=== PATIENT | female | born 1995 | race Caucasian/White ===

== ENCOUNTER 2017-05-01 11:29 | Observation (INO) | payer OTHER ==
[2017-05-01] MEDS ORDERED: methylPREDNISolone SOD SUCC 125 MG/2 ML VIAL IVP ONE (12:14)
[2017-05-01 12:21] LABS: % IMMATURE GRANULYOCYTES 0.4 % (0.0-1.1); ABSOLUTE IMMATURE GRANULOCYTES 0.11 10^3/uL (0.00-0.10); ADD DIFF? NO; ADD MORPH? NO; ADD SCAN? YES; FRAGMENT RBC FLAG 0 (0-99); HEMATOCRIT 44.4 % (38.0-47.0); HEMOGLOBIN 15.5 g/dL (12.6-16.3); LEFT SHIFT FLG 0 (0-99); LIPEMIA HEMOLYSIS FLAG 90 (0-99); MEAN CELL HEMOGLOBIN 31.4 pg (27.9-34.1); MEAN CELL HEMOGLOBIN CONCENTR. 34.9 g/dL (32.4-36.7); MEAN CELL VOLUME 89.9 fL (81.5-99.8); MEAN PLATELET VOLUME 11.3 fL (8.7-11.7); PLATELET CLUMPS FLAG 10 (0-99); PLATELET COUNT 179 10^3/uL (150-400); RED BLOOD CELL COUNT 4.94 10^6/uL (4.18-5.33)
[2017-05-01 12:26] LABS: ATYPICAL LYMPHOCYTE FLAG 300 (0-99)
[2017-05-01 12:28] LABS: ANION GAP 14 mEq/L (8-16); CALCIUM 9.3 mg/dL (8.5-10.4); CARBON DIOXIDE 22 mEq/l (22-31); CHLORIDE 109 mEq/L (97-110); CREATININE 0.9 mg/dL (0.6-1.0); GLOMERULAR FILTRATION RATE > 60; GLUCOSE 97 mg/dL (70-100); POTASSIUM 3.8 mEq/L (3.5-5.2); SODIUM 145 mEq/L (134-144)
--- NOTE | 2017-05-01 12:28 | EDPHY ---
H & P Time Seen by Provider: 05/01/17 12:22 HPI/ROS: CHIEF COMPLAINT: Sore throat HISTORY OF PRESENT ILLNESS: The patient is a 21-year-old female who presents emergency department with 1 week of cold-like symptoms. 3 days ago she developed sore throat. She went to urgent care on Friday. She had a positive mono spot test. She was started on prednisone. She states that her throat swelling has increased. She has significant bilateral throat pain. Since waking this morning she has had unfold voice. She denies fevers or chills. No nausea or vomiting. No abdominal pain. REVIEW OF SYSTEMS: My complete review of systems is negative except as mentioned in the HPI. Past Medical/Surgical History: Includes asthma, sinusitis, migraine Past surgical history: Negative Social history: The patient does not smoke Smoking Status: Never smoked Physical Exam: Vitals noted GENERAL: Mild acute distress, alert. HEENT: Eyes normal to inspection, no signs of dehydration. Patient has significant bilateral anterior lymphadenopathy with tenderness palpation. Patient's pharynx has markedly enlarged tonsils. These are touching the uvula bilateral. NECK: No thyromegaly, no lymphadenopathy, supple. RESPIRATORY: Clear to auscultation bilaterally, no rales, rhonchi or wheezing. CVS: Regular rate and rhythm, no rubs, murmurs, or gallops. ABDOMEN: Soft, nontender, nondistended, no organomegaly. BACK: Normal to inspection, no CVA tenderness. SKIN: Normal color, no rash, warm, dry. No pallor. EXTREMITIES: No pedal edema, no calf tenderness, no Homans sign or cords, no joint swelling. NEURO/PSYCH: Alert and oriented x3, normal mood and affect, normal motor sensory exam. Constitutional: Initial Vital Signs Temperature (C) 36.8 C 05/01/17 11:41 Heart Rate 112 H 05/01/17 11:41 Respiratory Rate 20 05/01/17 11:41 Blood Pressure 120/76 05/01/17 11:41 O2 Sat (%) 95 05/01/17 11:41 O2 Delivery Mode Room Air Allergies/Adverse Reactions: No Known Allergies Allergy (Unverified 05/01/17 11:40) Home Medications: Medication Instructions Recorded Prednisone 05/01/17 Medical Decision Making - Diagnostics Imaging Results: Imaging Impressions Neck CT 05/01/17 12:14 Impression: 1. Prominent adenoid tonsils bilaterally with small hypodense component within the deep portion of the right adenoid tonsil that could represent a small phlegmon versus tiny abscess. 2. Prominent lymphadenopathy on each side of the neck with largest jugulodigastric node as detailed above on each side. This could represent reactive lymphadenopathy from upper respiratory process. Clinical follow-up suggested. Findings discussed with Vicki Vasquez M.D. at 13:59 hour, 05/01/2017. ED Course/Re-evaluation: In the emergency department I discussed possible etiologies with the patient. I answered all her questions. IV was placed. Patient was given normal saline 1 L IV for hydration. She was given Solu-Medrol 125 mg IV. Laboratory studies and soft tissue neck CT were ordered. CT soft tissue neck: Please refer the dictated report. Patient has large tonsils. There is the right hypodense focus is a phlegmon versus abscess. This is 8 x 9 [place] [address]. Chemistry panel unremarkable. I discussed the results with the patient. On recheck she continues to have swollen tonsils. No airway occlusion. Patient still with muffled voice. ENT was paged. Patient was given Unasyn 1.5 g IV. She will be admitted for observation. I discussed the case with Dr. Hill from the hospitalist service. 1455: Patient is stable. No increased swelling of the patient's pharynx. Her airway is intact. No stridor wheezing. Differential Diagnosis: My differential includes but is not limited to mononucleosis, pharyngitis, peritonsillar abscess, retropharyngeal abscess, airway occlusion - Data Points Laboratory Results: Laboratory Results 05/01/17 12:07 05/01/17 12:05/01/17 05/01/17 05/01/17 12: 12: 12:07 WBC 25.31 10^3/uL H 10^3/uL (3.80-9.50) RBC 4.94 10^6/uL 10^6/uL (4.18-5.33) Hgb 15.5 g/dL g/dL (12.6-16.3) Hct 44.4 % % (38.0-47.0) MCV 89.9 fL fL (81.5-99.8) MCH 31.4 pg pg (27.9-34.1) MCHC 34.9 g/dL g/dL (32.4-36.7) RDW 14.0 % % (11.5-15.2) Plt Count 179 10^3/uL 10^3/uL (150-400) MPV 11.3 fL fL (8.7-11.7) Neut % (Auto) 16.1 % L % (39.3-74.2) Lymph % (Auto) 76.4 % H % (15.0-45.0) [place] % (Auto) 5.4 % % (4.5-13.0) Eos % (Auto) 0.1 % L % (0.6-7.6) Baso % (Auto) 1.6 % % (0.3-1.7) Nucleat RBC Rel Count 0.0 % % (0.0-0.2) Absolute Neuts (auto) 4.09 10^3/uL 10^3/uL (1.70-6.50) Absolute Lymphs (auto) 19.33 10^3/uL H 10^3/uL (1.00-3.00) Absolute Monos (auto) 1.36 10^3/uL H 10^3/uL (0.30-0.80) Absolute Eos (auto) 0.02 10^3/uL L 10^3/uL (0.03-0.40) Absolute Basos (auto) 0.40 10^3/uL H 10^3/uL (0.02-0.10) Absolute Nucleated RBC 0.00 10^3/uL 10^3/uL (0-0.01) Immature Gran % 0.4 % % (0.0-1.1) Seg Neutrophils % 19 % % Lymphocytes % 79 % % Monocytes % 2 % % Immature Gran # 0.11 10^3/uL H 10^3/uL (0.00-0.10) Absolute Seg Neuts 4.81 10^/uL 10^/uL (1.70-6.50) Absolute Lymphocytes 19.99 10^3/uL H 10^3/uL (1.00-3.00) Absolute Monocytes 0.51 10^3/uL 10^3/uL (0.30-0.80) RBC/WBC/PLT Morphology NORMAL (NORMAL) Atypical Lymphocytes 2+ H Platelet Estimate ADEQUATE (ADEQ) Smear Review By Pending Sodium 145 mEq/L H mEq/L (134-144) Potassium 3.8 mEq/L mEq/L (3.5-5.2) Chloride 109 mEq/L mEq/L (97-110) Carbon Dioxide 22 mEq/l mEq/l (22-31) Anion Gap 14 mEq/L mEq/L (8-16) BUN 12 mg/dL mg/dL (7-23) Creatinine 0.9 mg/dL mg/dL (0.6-1.0) Estimated GFR > 60 Glucose 97 mg/dL mg/dL (70-100) Calcium 9.3 mg/dL mg/dL (8.5-10.4) Beta HCG, Qual NEGATIVE Medications Given: Discontinued Medications Methylprednisolone Sodium Succinate (Solu-Medrol) 125 mg IVP EDNOW ONE Stop: 05/01/17 12:15 Last Admin: 05/01/17 12:18 Dose: 125 mg Departure - Departure Disposition: [facility] Inpatient Acute Clinical Impression: Mononucleosis Pharyngitis Qualifiers: Pharyngitis/tonsillitis etiology: unspecified etiology Qualified Code(s): J02.9 - Acute pharyngitis, unspecified Condition: Fair
[2017-05-01] MEDS ORDERED: IOPAMIDOL (ISOVUE-300) 100 ML BTL ONE (12:59)
[2017-05-01 13:55] LABS: SCAN POSITIVE
[2017-05-01 14:00] LABS: PLATELET ESTIMATE ADEQUATE (ADEQ)
[2017-05-01] MEDS ORDERED: AMPICILLIN/SULBACTAM 1.5 GM in NS 50 ML IV ONE (14:14)
[2017-05-01 14:36] LABS: BILIRUBIN,TOTAL 0.7 mg/dL (0.1-1.4)
[2017-05-01] MEDS ORDERED: ONDANSETRON 4 MG/2 ML VIAL IVP PRN (16:52)
[2017-05-01] MEDS ORDERED: oxyCODONE IR 5 MG TAB PO PRN (16:52)
[2017-05-01] MEDS ORDERED: HYDROmorphone HCL/NS/PF 0.4 MG/2 ML SYR IVP PRN (16:52)
[2017-05-01] MEDS ORDERED: KETOROLAC 30 MG/1 ML SDV IVP PRN (16:52)
[2017-05-01] MEDS ORDERED: traMADol 50 MG TAB PO PRN (16:52)
[2017-05-01] MEDS ORDERED: ACETAMINOPHEN 325 MG TAB PO PRN (16:52)
[2017-05-01] MEDS ORDERED: PROMETHAZINE HCL 25 MG/ML INJ IVP PRN (16:52)
[2017-05-01] MEDS ORDERED: D5W LR 1,000 ML IV SCH (17:00)
--- NOTE | 2017-05-01 17:19 | GHP ---
[f rep st] HISTORY AND PHYSICAL DATE OF ADMISSION: 05/01/2017 CHIEF COMPLAINT: Sore throat. HISTORY: The patient is a 21-year-old female, who has been sick for about a week, initially presenti with fatigue. About 2 days ago, she developed a severe sore throat with enlargement of her cervic al nodes and swelling in her tonsils. She was seen at Urgent Care 2 days ago and Monospot was positi ve. Her strep was negative. She was started on prednisone. She was told that she could anticipate improvement on the steroids; however she has only gotten worse. She feels like her throat swelling i s increasing. She has severe pain with swallowing. She has been unable to take anything orally. Sh e can't even swallow the prednisone tablets. She is feeling short of breath due to the immense throa t swelling. PAST MEDICAL HISTORY: 1. Asthma. 2. Migraines. MEDICATIONS: Please see computer record for full detailed list. ALLERGIES: No known drug allergies. SOCIAL HISTORY: No smoking. No alcohol. She is a sophomore at . She lives in an apartment with her boyfriend. She is originally from [place], [place]. REVIEW OF SYSTEMS: Complete review of systems obtained. Review of systems negative regarding consti tutional, HEENT, GI, pulmonary, cardiovascular, , hematology, skin, musculoskeletal, endocrine, psy ch. Positives and negatives as in HPI. FAMILY HISTORY: Reviewed, noncontributory to presenting complaint. PHYSICAL EXAMINATION: GENERAL: Well-developed, well-nourished female, in no acute distress. VITAL SIGNS: Temperature 36.9, pulse 112, blood pressure 112/74, saturating 96% on room air. EYES: Normal conjunctivae. Pupils round, reactive to light. ENT: Normal ears, nose. Hearing intact. Normal t eeth. Oropharynx is dry. She has massive pharyngeal tonsillar enlargement although I do not see muc h exudate on them. She has very large bilateral cervical nodes. Trachea is midline. No thyromegaly . CHEST: Normal respiratory effort. LUNGS: Clear to auscultation bilaterally. CARDIOVASCULAR: R egular rhythm. No murmur. No extremity edema. ABDOMEN: Soft, nontender. No hepatosplenomegaly. SKIN: Warm, dry, intact. No rash. MUSCULOSKELETAL: No cyanosis or clubbing. Strength 5/5 upper a nd lower extremities. NEUROLOGIC: Cranial nerves intact. Normal sensation light touch. PSYCH: Al ert and oriented x3. Normal mood and affect. Normal judgment. Normal memory. LABORATORY DATA: White count 25.3, 76% lymphocytes, 2+ atypical lymphocytes, hematocrit 44.4, platel ets 179. Sodium 145, potassium 3.8, chloride 109, bicarb 22, BUN 12, creatinine 0.9, glucose 97. Be ta HCG is negative. IMAGING PROCEDURE: CT scan of the neck shows prominent adenoids with a right phlegmonous abscess. T his case was discussed with Dr. Vicki Vasquez, emergency room physician. Regarding ER course, he s tarted her on IV Unasyn, IV steroids and he consulted ENT. ASSESSMENT/PLAN: 1. Mononucleosis. Patient has massive tonsillar enlargement and cervical lymphadenopathy. CT scan of the neck does show her airway is intact. I have personally spoken with ENT and they do not think there is any indication for a procedure at this time and recommend medical therapy with steroids and antibiotics. We will place on IV Decadron. 2. Phlegmonous small abscess. We will continue IV Unasyn and can transition to oral antibiotic when she is able to take p.o. 3. Leukocytosis. This is lymphocyte-predominant and consistent with mononucleosis. I do not think she has sepsis. 4. Asthma. Continue her Singulair. CODE STATUS: Full. ADMISSION STATUS: We will admit to observation and re-evaluate tomorrow regarding stability to trans ition oral therapy. DEEP VENOUS THROMBOSIS PROPHYLAXIS: She is low risk. /[id number]/MODL
[2017-05-01] MEDS: DEXAMETHASONE 4 MG/ML VIAL IVP SCH ×2 (17:54→23:37)
[2017-05-01] MEDS: AMPICILLIN/SULBACTAM 3 GM in NS 100 ML IV SCH ×2 (17:54→23:37)
[2017-05-01] MEDS ORDERED: MONTELUKAST SODIUM 10 MG TAB PO SCH (21:00)
[2017-05-02 04:48] VITALS: PULSE 65
[2017-05-02] MEDS: AMPICILLIN/SULBACTAM 3 GM in NS 100 ML IV SCH ×2 (05:14→11:20)
[2017-05-02] MEDS: DEXAMETHASONE 4 MG/ML VIAL IVP SCH ×2 (05:14→11:21)
[2017-05-02 05:40] LABS: % IMMATURE GRANULYOCYTES 0.7 % (0.0-1.1); ABSOLUTE IMMATURE GRANULOCYTES 0.11 10^3/uL (0.00-0.10); ADD DIFF? NO; ADD MORPH? NO; ADD SCAN? YES; FRAGMENT RBC FLAG 0 (0-99); HEMATOCRIT 39.5 % (38.0-47.0); HEMOGLOBIN 13.8 g/dL (12.6-16.3); LEFT SHIFT FLG 0 (0-99); LIPEMIA HEMOLYSIS FLAG 90 (0-99); MEAN CELL HEMOGLOBIN 31.4 pg (27.9-34.1); MEAN CELL HEMOGLOBIN CONCENTR. 34.9 g/dL (32.4-36.7); MEAN PLATELET VOLUME 11.3 fL (8.7-11.7); PLATELET CLUMPS FLAG 20 (0-99); PLATELET COUNT 177 10^3/uL (150-400); RED BLOOD CELL COUNT 4.39 10^6/uL (4.18-5.33); RED CELL DISTRIBUTION WIDTH 13.8 % (11.5-15.2)
[2017-05-02 05:47] LABS: ATYPICAL LYMPHOCYTE FLAG 300 (0-99)
[2017-05-02 05:52] LABS: ALANINE AMINOTRANSFERASE 384 IU/L (9-52); ALBUMIN 3.5 g/dL (3.5-5.0); ALKALINE PHOSPHATASE 148 IU/L (38-126); ANION GAP 11 mEq/L (8-16); ASPARTATE AMINOTRANSFERASE 143 IU/L (14-46); BILIRUBIN,TOTAL 0.4 mg/dL (0.1-1.4); BILIRUBIN-CONJUGATED 0.2 mg/dL (0.0-0.5); BILIRUBIN-UNCONJUGATED 0.2 mg/dL (0.0-1.1); CALCIUM 8.8 mg/dL (8.5-10.4); CARBON DIOXIDE 21 mEq/l (22-31); CHLORIDE 110 mEq/L (97-110); CREATININE 0.7 mg/dL (0.6-1.0); GLOMERULAR FILTRATION RATE > 60; GLUCOSE 162 mg/dL (70-100); POTASSIUM 4.4 mEq/L (3.5-5.2); SODIUM 142 mEq/L (134-144)
[2017-05-02 06:32] LABS: SCAN POSITIVE
[2017-05-02 06:37] LABS: PLATELET ESTIMATE ADEQUATE (ADEQ)
[2017-05-02 06:38] LABS: MACROCYTES 1+; POLYCHROMASIA 1+
[2017-05-02 07:43] VITALS: BP 96/49; RESP 14; TEMP 98.4; O2SAT 96
--- NOTE | 2017-05-02 15:35 | GDS ---
[f rep st] DISCHARGE SUMMARY DISCHARGE DIAGNOSES: 1. Mononucleosis. 2. Phlegmonous small abscess. 3. Leukocytosis. STUDIES AND PROCEDURES DONE: CT of the neck. PHYSICAL EXAM: GENERAL: The patient is alert. VITAL SIGNS: Afebrile at 36.9, pulse 65, respirator y rate is 14, blood pressure is 69/49, she is saturating 96% on room air. I have seen and evaluated the patient on the day of discharge. HOSPITAL COURSE: The patient is a 21-year-old female, who presented to the emergency room with compl aints of a sore throat. She was evaluated and diagnosed with: 1. Mononucleosis. The patient does have massive tonsillar enlargement as well as cervical lymphaden opathy. A CT of the neck was performed at the time of admission. She has been treated with IV Decadr on and her symptoms have significantly improved. 2. Phlegmonous small abscess. The patient had been given IV Unasyn during this hospitalization and has been transitioned to oral Augmentin at the time of disposition. She will continue this in the tpatient setting. Strep culture is negative. 3. Leukocytosis. This is improving in the setting of acute infection. 4. Disposition: The patient will be discharged home independently. She has been educated to return to the emergency room if she has difficulty breathing or difficulty with worsening swallowing. DISCHARGE MEDICATIONS: I have provided the patient a prescription for Augmentin 875 twice daily, #14 as well as Decadron 4 mg q.8 hours, #4. I have not discontinued or adjusted the patient's previousl y prescribed home medications to the best of my knowledge. FOLLOWUP: Will be with her primary care physician in the outpatient setting. /[id number]/MODL
--- NOTE | 2017-05-03 13:51 | ASDISCHSUM ---
Discharge Information Plan Status:Home with No Needs Medically Cleared to Leave: Discharge Date:05/02/2017 04:33 PM CM D/C Disposition:Home, Routine, Self-Care ADT D/C Disposition:Home, Routine, Self-Care Projected Discharge Date:05/02/2017 04:33 PM Transportation at D/C: Discharge Delay Reason: Follow-Up Date:05/02/2017 04:33 PM Discharge Slot: Final Diagnosis: Placement Information Patient Contact Information Contact Name:MARY Relationship:Father Address:[address] Work Phone: Pedro:HORTENCIA Gabriel Phone: [facility]/Zip Code:[place] [address] Email: Financial Information Financial Class:HMO and PPO Plans Primary Plan Desc:[facility] [facility] Primary Plan Number:[id number] Secondary Plan Desc: Secondary Plan Number: Assessment Information Intervention Information
== END 2017-05-02 16:33 | disposition home or self-care (01) ==
LOC: F3E 16:20
PROVIDERS: ADMIT Internal Medicine; ATTEND Internal Medicine
DX: B27.99 Infectious mononucleosis, unspecified with other complication (principal); J36 Peritonsillar abscess; J45.909 Unspecified asthma, uncomplicated
CPT/HCPCS: 70491; G0378; 96374; J0295; J1100; J2930; Q9967